=== PATIENT | male | born 1980 | race Two or more races ===

== ENCOUNTER 2018-05-23 19:51 | Emergency (ER) | payer SELFPAY ==
[~2018-05-23] VITALS: Ht 180.3 cm; Wt 82.0 kg
[2018-05-23 19:55] VITALS: BP 119/76
== END 2018-05-23 21:10 | disposition left against medical advice (07) ==
LOC: ER 20:46
DX: R55 Syncope and collapse (principal); Z53.21 Procedure and treatment not carried out due to patient leaving prior to being seen by health care provider